=== PATIENT | female | born 1995 | race American Indian/Alaskan Native ===

== ENCOUNTER 2019-07-07 09:51 | Emergency (ER) | payer SELFPAY ==
[2019-07-10 07:38] VITALS: BP 110/66
== END 2019-07-10 13:46 | disposition home or self-care (01) ==
LOC: EEVIPCON 09:51 → ED 09:51
DX: F31.9 Bipolar disorder, unspecified (principal); R45.851 Suicidal ideations; F25.9 Schizoaffective disorder, unspecified
CPT/HCPCS: 36415; 80048; 80307; 80320; 81001; 81025; 85025; G0480

== ENCOUNTER 2019-11-23 19:59 | Emergency (ER) | payer SELFPAY ==
[2019-11-23 20:46] LABS: Basophils % (Auto) 0.7 % (0.0-1.8); Eosinophils % (Auto) 0.6 % (0.0-4.3); Hemoglobin 12.1 gm/dl (10.1-14.3); Lymphocytes % (Auto) 46.7 % (13.4-35.0); Mean Corpuscular HGB Conc 34 % (30-34); Mean Corpuscular Volume 93 fl (79-97); Monocytes # (Auto) 0.5 K/mm3 (0.0-0.8); Monocytes % (Auto) 10.8 % (0.0-7.3); Platelet Count 281 K/mm3 (140-440); Red Blood Count 3.86 M/mm3 (3.65-5.03); Red Cell Distribution Width 13.2 % (13.2-15.2)
[2019-11-23 20:54] LABS: Bilirubin,Urine NEG (Negative); Blood,Urine NEG (Negative); Color,Urine Yellow (Yellow); Mucus,Urine FEW /HPF; Protein,Urine <15 mg/dL mg/dL (Negative)
[2019-11-23 20:59] LABS: Amphetamine Screen,Urine PRESUMPTIVE NEGATIVE; Benzodiazepines Screen,Urine PRESUMPTIVE NEGATIVE; Cannabinoid Screen,Urine PRESUMPTIVE NEGATIVE; Cocaine Screen,Urine PRESUMPTIVE NEGATIVE; Methadone Screen,Urine PRESUMPTIVE NEGATIVE; Opiate Screen,Urine PRESUMPTIVE NEGATIVE
--- NOTE | 2019-11-23 21:00 | Emergency Department Report ---
<NANCY MERCEDES III Eusebio - Last Filed: 11/23/19 21:16> ED Psych HPI - General Chief Complaint: Psych Stated Complaint: MH EVAL/SUICIDAL Time Seen by Provider: 11/23/19 20:48 Source: family Mode of arrival: Ambulatory Limitations: No Limitations - History of Present Illness Initial Comments: Patient is a 24-year-old female that presents emergency room with complaints of suicidal ideations with a plan, patient states that she had a control placed in her arm 2 years ago but is actually a tracking device that her parents place. Patient states that she is a government spying and the [employer] is trying to control her with satellite waves. Patient states that she is having visual hallucinations. Patient denies audio hallucinations. Patient states that she was violent towards her family because they are trying to control her. Patient states that she is worried that people are out to get her. Patient states her plan would be to overdose on pills. MD Complaint: suicidal ideation, feels depressed, other - Related Data Home Medications Medication Instructions Recorded Confirmed Last Taken diphenhydrAMINE [Benadryl CAP] 25 mg PO Q6HR PRN 07/07/19 11/23/19 Unknown Previous Rx's Medication Instructions Recorded Last Taken Type Escitalopram [Lexapro] 5 mg PO DAILY #30 tablet 07/10/19 Unknown Rx risperiDONE [RisperDAL] 4 mg PO DAILY #30 07/10/19 Unknown Rx traZODone [Desyrel] 50 mg PO QHS #30 tablet 07/10/19 Unknown Rx Sulfamethoxazole/Trimethoprim 1 each PO BID 10 Days #20 tablet 11/23/19 Unknown Rx [Bactrim DS TAB] Escitalopram [Lexapro] 10 mg PO DAILY #30 tablet 11/27/19 Unknown Rx risperiDONE [RisperDAL] 3 mg PO BID #60 tablet 11/27/19 Unknown Rx traZODone [Desyrel] 50 mg PO QHS #30 tab 11/27/19 Unknown Rx Allergies Allergy/AdvReac Type Severity Reaction Status Date / Time No Known Allergies Allergy Unverified 07/07/19 09:56 ED Review of Systems Constitutional: denies: chills, fever Eyes: denies: eye pain, eye discharge, vision change ENT: denies: ear pain, throat pain Respiratory: denies: cough, shortness of breath, wheezing Cardiovascular: denies: chest pain, palpitations Endocrine: no symptoms reported Gastrointestinal: denies: abdominal pain, nausea, diarrhea Genitourinary: denies: urgency, dysuria, discharge Musculoskeletal: denies: back pain, joint swelling, arthralgia Skin: denies: rash, lesions Neurological: denies: headache, weakness, paresthesias Psychiatric: depression, visual hallucinations, suicidal thoughts. denies: anxiety, auditory hallucinations, homicidal thoughts Hematological/Lymphatic: denies: easy bleeding, easy bruising ED Past Medical Hx - Past Medical History Previous Medical History?: Yes Hx Psychiatric Treatment: Yes (BIPOLAR/ SCHIZO EFFECTIVE DISORDER) - Surgical History Past Surgical History?: Yes Additional Surgical History: STOMACH SURGERY BABY - Family History Family history: no significant - Social History Smoking Status: Never Smoker Substance Use Type: Alcohol - Medications Home Medications: Home Medications Medication Instructions Recorded Confirmed Last Taken Type diphenhydrAMINE [Benadryl CAP] 25 mg PO Q6HR PRN 07/07/19 11/23/19 Unknown History Escitalopram [Lexapro] 5 mg PO DAILY #30 tablet 07/10/19 11/23/19 Unknown Rx risperiDONE [RisperDAL] 4 mg PO DAILY #30 07/10/19 11/23/19 Unknown Rx traZODone [Desyrel] 50 mg PO QHS #30 tablet 07/10/19 11/23/19 Unknown Rx Sulfamethoxazole/Trimethoprim 1 each PO BID 10 Days #20 tablet 11/23/19 Unknown Rx [Bactrim DS TAB] Escitalopram [Lexapro] 10 mg PO DAILY #30 tablet 11/27/19 Unknown Rx risperiDONE [RisperDAL] 3 mg PO BID #60 tablet 11/27/19 Unknown Rx traZODone [Desyrel] 50 mg PO QHS #30 tab 11/27/19 Unknown Rx ED Physical Exam - General Limitations: No Limitations General appearance: alert, in no apparent distress - Head Head exam: Present: atraumatic, normocephalic - Eye Eye exam: Present: normal appearance - ENT ENT exam: Present: mucous membranes moist - Neck Neck exam: Present: normal inspection - Respiratory Respiratory exam: Present: normal lung sounds bilaterally. Absent: respiratory distress - Cardiovascular Cardiovascular Exam: Present: regular rate, normal rhythm. Absent: systolic murmur, diastolic murmur, rubs, gallop - GI/Abdominal GI/Abdominal exam: Present: soft, normal bowel sounds - Extremities Exam Extremities exam: Present: normal inspection - Back Exam Back exam: Present: normal inspection - Neurological Exam Neurological exam: Present: alert, oriented X3 - Psychiatric Psychiatric exam: Present: depressed, flat affect, suicidal ideation - Expanded Psychiatric Exam Expanded Focused psych exam: Present: pressured speech, delusional, paranoid, flight of ideas, loose associations - Skin Skin exam: Present: warm, dry, intact, normal color. Absent: rash ED Course - Reevaluation(s) Reevaluation #1: Initial evaluation done. Patient placed on a 1013 due to her symptoms and complaints. Patient is having a suicidal ideation with a plan, delusions, visual hallucination, paranoia, acute psychosis. Patient will also be placed on a ER hold. 11/23/19 21:14 Reevaluation #2: I discussed all results and clinical findings with patient. I discussed plan of care with patient. Patient agrees with plan of care. Patient is medically cleared. Patient will require a final disposition and psychiatric disposition to come from our mental health and psychiatric team. Patient will remain on a 1013 and an ER hold. 11/23/19 21:30 ED Medical Decision Making - Lab Data Result diagrams: 11/23/19 20:32 11/23/19 20:32 - Medical Decision Making Patient is a 24-year-old female that presents emergency room with complaints of multiple psychiatric issues. Patient found to have suicidal ideation with a plan to overdose on pills. Acute psychosis to include paranoia and delusions and hallucinations. Patient has delusions that the patient is a government spy and that the government is trying to control her. Patient also believes that her control device in her left upper extremity is a tracking device. Patient was placed on a 1013 in ER hold immediately upon initial evaluation. Patient is medically cleared and patient's final disposition will come from our mental health team and psychiatry team. Patient's labs were done essentially unremarkable except for a UTI. Patient given a prescription for a antibiotic. Patient is stable from a medical standpoint. - Differential Diagnosis Suicidal ideation, acute psychosis, delusions, paranoia, ED Disposition Clinical Impression: Schizoaffective disorder Disposition: DC-01 TO HOME OR SELFCARE Is pt being admited?: No Does the pt Need Aspirin: No Condition: Stable Instructions: Medical Clearance for Psychiatric Care (ED) Prescriptions: traZODone [Desyrel] 50 mg PO QHS #30 tab Sulfamethoxazole/Trimethoprim [Bactrim DS TAB] 1 each PO BID 10 Days #20 tablet Escitalopram [Lexapro] 10 mg PO DAILY #30 tablet risperiDONE [RisperDAL] 3 mg PO BID #60 tablet Referrals: GRAYSON PEREZ MD [Primary Care Provider] - 3-5 Days [facility] [Outside] - 3-5 Days <NATALIO MARKS - Last Filed: 11/27/19 13:02> ED Review of Systems ROS: Stated complaint: MH EVAL/SUICIDAL Other details as noted in HPI ED Course Vital Signs 11/23/19 11/24/19 11/24/19 20:03 01:43 08:00 Temperature 98.8 F 98.7 F 98.5 F Pulse Rate 90 100 H 107 H Respiratory 16 18 18 Rate Blood Pressure 120/80 Blood Pressure 112/53 109/68 [Left] O2 Sat by Pulse 99 97 98 Oximetry 11/24/19 11/24/19 11/24/19 10:15 17:01 20:02 Temperature 99.3 F 98.6 F Pulse Rate 94 H 84 Respiratory 18 18 16 Rate Blood Pressure Blood Pressure 128/74 114/68 [Left] O2 Sat by Pulse 98 96 99 Oximetry 11/25/19 11/25/19 11/25/19 02:19 09:33 14:18 Temperature 98.1 F 98.4 F 98.2 F Pulse Rate 78 72 101 H Respiratory 16 17 16 Rate Blood Pressure Blood Pressure 103/61 117/81 116/64 [Left] O2 Sat by Pulse 100 98 99 Oximetry 11/25/19 11/25/19 11/25/19 20:00 20:20 21:00 Temperature 98.8 F Pulse Rate 119 H 95 H Respiratory 18 18 Rate Blood Pressure Blood Pressure 127/60 [Left] O2 Sat by Pulse 98 98 Oximetry 11/26/19 11/26/19 11/26/19 02:08 20:30 21:14 Temperature 98.0 F 98.0 F Pulse Rate 108 H 101 H Respiratory 18 20 18 Rate Blood Pressure Blood Pressure 109/64 127/65 [Left] O2 Sat by Pulse 99 98 98 Oximetry 11/27/19 11/27/19 01:25 09:08 Temperature 97.9 F 97.9 F Pulse Rate 90 100 H Respiratory 18 20 Rate Blood Pressure Blood Pressure 122/60 131/75 [Left] O2 Sat by Pulse 100 100 Oximetry ED Medical Decision Making - Lab Data Result diagrams: 11/23/19 20:32 11/23/19 20:32 - Medical Decision Making Pt seen and evaluated by mental health. 1013 rescinded. I spoke w/ pt she is not currently paranoid nor suicidal or homicidal. Pt to f/u w/ outpt services. Critical care attestation.: If time is entered above; I have spent that time in minutes in the direct care of this critically ill patient, excluding procedure time. ED Disposition Is pt being admited?: No Time of Disposition: 13:01
[2019-11-23 21:05] LABS: BUN/Creatinine Ratio 17; Blood Urea Nitrogen 12 mg/dL (7-17); Calcium 9.4 mg/dL (8.4-10.2); Hemolysis Index 13
--- NOTE | 2019-11-25 10:53 | Consultation ---
History of Present Illness - Reason for Consult Consult date: 11/25/19 Reason for consult: paranoia - History of Present Psychiatric Illness Bridgett Carter is a 24y/o female patient who states she was admitted into the hospital for "experiencing psychosis." She is a/o x 3. She makes good eye contact. She smiles inappropriately. The patient says she "believes the [employer]os[employer] n[employer] is spying on me." She then says "they placed a tracking device in my arm." The patient holds her arm out and asks me to feel "the tracking device." She then tells me, "they say it's control. But why haven't it come out?" The patient says "I fight with my brain to believe reality." She denies any drug use stating, "I want to but my mom want let me." She says "I did lean, you know the cough syrup." She says "my mom controls my life. I can't do anything." When asking the patient if she was suicidal, she states, "I was, but I'm not sure right now." She says, "my mom hides all the knives and alcohol. Because I get violent when I get a knife." The patient is smiling. She says she has a history of "schizoaffective disorder and bipolar." The patient says she takes "benadryl, trazodone, lexapro and risperidone." She denies hallucinations of any kind. She describes her mood as "good." She denies any problems with her appetite or sleep. PAST PSYCHIATRIC HISTORY: Diagnoses: schizoaffective Disorder and bipolar Suicide attempts or Self-harm behavior: Denies Prior psychiatric hospitalizations: 3 times Substance Abuse history: Denies Previous psychiatric medications tried: benedryl, trazodone, lexapro, and risperidone Outpatient treatment: Yes PAST MEDICAL HISTORY: None reported Family Psychiatric History: None reported or documented SOCIAL HISTORY Current living status: Mom Highest level of education: Some college Employment Status: Unemployed Marital status: Single Legal history: Denies History of abuse: Denies REVIEW OF SYSTEMS Constitutional: Negative for weight loss ENT: Negative for stridor Respiratory: Negative for cough or hemoptysis All other systems reviewed and are negative MENTAL STATUS EXAMINATION General Appearance: Dressed appropriately Behavior: Calm, cooperative. Good eye contact Mood: "good" Affect: Smiles inappropriately Speech: Normal tone and pace Thought Process: responding to internal stimuli Thought Content: Suicidal Ideation: Yes Homicidal Ideation: Yes Hallucinations: Denies Delusions: Yes Insight and Judgment: Impaired Memory/Cognition: Limited Assessment Schizoaffective Disorder Plan MEDICATIONS: Restarted home medications Risks, benefits and alternatives of medications discussed with the patient, q uestions answered and consent obtained from patient. PSYCHOTHERAPY: Supportive psychotherapy provided MEDICAL: Per primary team DELIRIUM PRECAUTIONS: Please re-orient patient frequently, keep lights on during the day, and minimize benzodiazepines and opiates as these medications could worsen patient's confusion. SHELTER ADVOCATE: Per Medical team. DISPOSITION: The patient meets the requirement for acute inpatient psychiatric hospitalization at this time. She may transfer to an acute psychiatric facility once medically clear. The treatment plan was explained to the patient, including benefits and side effects of medications, she verbalizes understanding and agreement of plan. Will continue to follow until the patient is transferred or his condition improves enough for discharge Thank you for the consult. Please contact with any questions or concerns. Medications and Allergies Allergies Allergy/AdvReac Type Severity Reaction Status Date / Time No Known Allergies Allergy Unverified 07/07/19 09:56 Home Medications Medication Instructions Recorded Confirmed Last Taken Type diphenhydrAMINE [Benadryl CAP] 25 mg PO Q6HR PRN 07/07/19 11/23/19 Unknown History Escitalopram [Lexapro] 5 mg PO DAILY #30 tablet 07/10/19 11/23/19 Unknown Rx risperiDONE [RisperDAL] 4 mg PO DAILY #30 07/10/19 11/23/19 Unknown Rx traZODone [Desyrel] 50 mg PO QHS #30 tablet 07/10/19 11/23/19 Unknown Rx Sulfamethoxazole/Trimethoprim 1 each PO BID 10 Days #20 tablet 11/23/19 Unknown Rx [Bactrim DS TAB] Mental Status Exam - Vital signs Last Vital Signs Temp 98.4 F 11/25/19 09:33 Pulse 72 11/25/19 09:33 Resp 17 11/25/19 09:33 BP 117/81 11/25/19 09:33 Pulse Ox 98 11/25/19 09:33 Results Result Diagrams: 11/23/19 20:32 11/23/19 20:32 All other labs normal.
[2019-11-25] MEDS ORDERED: ZIPRASIDONE MESYLATE 20 MG VIAL IM PRN (10:56)
[2019-11-25] MEDS ORDERED: RISPERIDONE 4 MG PO SCH (11:00)
[2019-11-25] MEDS ORDERED: diphenhydrAMINE 25 MG CAP PO PRN (11:00)
[2019-11-25] MEDS ORDERED: risperiDONE 1 MG TAB PO SCH (11:00)
[2019-11-25] MEDS: ESCITALOPRAM 10 MG TAB PO SCH (12:00)
[2019-11-25] MEDS: risperiDONE 1 MG TAB PO SCH (13:00)
[2019-11-25] MEDS: traZODone 50 MG TAB PO SCH (22:32)
--- NOTE | 2019-11-26 10:08 | Progress Note ---
Subjective - Reason for Consult Consult date: 11/26/19 Reason for consult: paranoia - Chief Complaint Chief complaint: The patient's medical record was reviewed and the patient's progress discussed with the nursing staff. During my interview with the patient this morning, she is asleep. She has the linen over her head. She easily arouses. She makes fair eye contact. Her affect is restricted today. She says she was brought here because "I was feeling suicidal and paranoid." She states, "I'm not that suicidal anymore." The patient says "my mom thinks I'm paranoid because I believe in aliens." She says, "I guess this really is a control device in my arm." She holds her arm up and is staring and rubbing on the site. She then says, "I guess that's what it is." She then stares straight ahead. She says her mood is "okay." She says she slept "good." She denies hallucinations of any kind, although she still appears to be responding to internal stimuli MENTAL STATUS EXAMINATION General Appearance: Dressed appropriately Behavior: Calm, cooperative. Fair eye contact Mood: "okay" Affect: Restricted Speech: Normal tone and pace Thought Process: responding to internal stimuli Thought Content: Suicidal Ideation: Yes Homicidal Ideation: Denies Hallucinations: Denies Delusions: Yes Insight and Judgment: Impaired Memory/Cognition: Limited Assessment Schizoaffective Disorder Plan MEDICATIONS: Increased Lexapro 10mg po daily to decrease underlying depression Increased Risperidone 3mg po BID to decrease psychosis Risks, benefits and alternatives of medications discussed with the patient, questions answered and consent obtained from patient. PSYCHOTHERAPY: Supportive psychotherapy provided MEDICAL: Per primary team DELIRIUM PRECAUTIONS: Please re-orient patient frequently, keep lights on during the day, and minimize benzodiazepines and opiates as these medications could worsen patient's confusion. UNDERWATER TRAPPER: Per Medical team. DISPOSITION: The patient meets the requirement for acute inpatient psychiatric hospitalization at this time. She may transfer to an acute psychiatric facility once medically clear. The treatment plan was explained to the patient, including benefits and side effects of medications, she verbalizes understanding and agreement of plan. Will continue to follow until the patient is transferred or his condition improves enough for discharge Thank you for the consult. Please contact with any questions or concerns. Mental Status Exam - Vital signs Last Vital Signs Temp 98.0 F 05/10/20 02:08 Pulse 108 H 11/26/19 02:08 Resp 18 11/26/19 02:08 BP 109/64 11/26/19 02:08 Pulse Ox 99 11/26/19 02:08
[2019-11-26] MEDS: ESCITALOPRAM 10 MG TAB PO SCH ×2 (10:11→13:12)
[2019-11-26] MEDS: risperiDONE 1 MG TAB PO SCH (10:11)
[2019-11-26] MEDS ORDERED: risperiDONE 1 MG TAB PO SCH (22:00)
[2019-11-26] MEDS: traZODone 50 MG TAB PO SCH (23:16)
[2019-11-26] MEDS: risperiDONE 3 MG TAB PO SCH (23:16)
[2019-11-27] MEDS: ESCITALOPRAM 10 MG TAB PO SCH (10:48)
[2019-11-27] MEDS: risperiDONE 3 MG TAB PO SCH (10:48)
--- NOTE | 2019-11-27 11:41 | Progress Note ---
Subjective - Reason for Consult Consult date: 11/27/19 Reason for consult: paranoia - Chief Complaint Chief complaint: The patient's medical record was reviewed and the patient's progress discussed with the nursing staff. The nurse note states the patient is resting quietly on recliner, resp even and non labored, no acute distress noted, no s/s of self harm, ambulates as needed to restroom, able to make needs known The patient is calm and cooperative, pleasant mood noted. During my interview with the patient this morning, she is awake. She is dressed appropriately. She is calm and cooperative. She is pleasant. She makes good eye contact. She says she slept "good." The patient states, "I think my medications wasn't right. I feel so much better now." She then states, "my mind has been clear and I don't feel paranoid." She says she "slept good." The patient denies SI/HI, any fear of endangerment, and hallucinations of any kind. She asks me if I would call her mom and speak with her. I called the patient's mother, Lyle Carter, via my cell phone at [phone]. Mrs. Carter states to me that she had spoken with the patient and she senses that she is improved significantly. She says she spoke with the patient in debt and she would like to take Bridgett home. Mrs. Carter says she was concerned with COVID-19 exposure at hospitals. She states that she did not believe Bridgett was on the right dose of medicine. Mrs. Carter denies any fear or feelings of endangerment of the patient being discharged home. The safety plan was explained to her. She and Bridgett both verbalizes understanding and agreement. MENTAL STATUS EXAMINATION General Appearance: Dressed appropriately Behavior: Calm, cooperative. Pleasant. Good eye contact Mood: "so mugh better now" Affect: Restricted Speech: Normal tone and pace Thought Process: goal oriented Thought Content: Suicidal Ideation: Denies Homicidal Ideation: Denies Hallucinations: Denies Delusions: None elicited Insight and Judgment: Limited Memory/Cognition: Limited Assessment Schizoaffective Disorder Plan D/C 1013 MEDICATIONS: Lexapro 10mg po daily to decrease underlying depression Risperidone 3mg po BID to decrease psychosis Trazodone 50mg po qhs Okay to continue home diphehydramine as needed (no scripts given) Risks, benefits and alternatives of medications discussed with the patient, questions answered and consent obtained from patient. PSYCHOTHERAPY: Supportive psychotherapy provided MEDICAL: Per primary team DELIRIUM PRECAUTIONS: Please re-orient patient frequently, keep lights on during the day, and minimize benzodiazepines and opiates as these medications could worsen patient's confusion. CASH CONTROLLER: Per Medical team. DISPOSITION: The patient does not meet the requirement for acute inpatient psychiatric hospitalization at this time. She may discharge home once medically clear. She and her mother understand that if SI/HI or feelings of endangerment are to arise, they are to seek immediate assistance including but not limited to the crisis hotline, 911 or/and ER. The commercial account manager is to further discuss safety plan with the patient, and resources for cognitive behavioral therapy. The patient is to follow up with outpatient psychiatry or primary in 7 to 14 days upon discharge. The treatment plan was explained to the patient and her mother, Lyle Carter, including benefits and side effects of medications, they both verbalize understanding and agreement of plan. Will sign off. Thank you for the consult. Please contact with any questions or concerns. Mental Status Exam - Vital signs Last Vital Signs Temp 97.9 F 11/27/19 09:08 Pulse 100 H 11/27/19 09:08 Resp 20 11/27/19 09:08 BP 131/75 11/27/19 09:08 Pulse Ox 100 11/27/19 09:08
[2019-11-28 11:37] VITALS: BP 131/75
== END 2019-11-27 13:21 | disposition home or self-care (01) ==
LOC: EEVIPCON 19:59 → ED 19:59
DX: F25.9 Schizoaffective disorder, unspecified (principal); Z98.890 Other specified postprocedural states; Z79.899 Other long term (current) drug therapy
CPT/HCPCS: 36415; 80048; 80307; 80320; 81001; 84703; 85025; 87086; G0480

== ENCOUNTER 2022-04-09 17:00 | Emergency (ER) | payer SELFPAY ==
[2022-04-09 18:35] LABS: Color,Urine Straw (Yellow); RBC,Urine < 1.0 /HPF (0.0-6.0); WBC,Urine < 1.0 /HPF (0.0-6.0)
[2022-04-09 18:45] LABS: Alanine Aminotransferase 19 units/L (7-56); Albumin 4.3 g/dL (3.9-5); BUN/Creatinine Ratio 9; Blood Urea Nitrogen 9 mg/dL (7-17); Calcium 10.1 mg/dL (8.4-10.2); Hemolysis Index 14
[2022-04-09 19:16] LABS: Basophils % (Auto) 0.6 % (0.0-1.8); Eosinophils % (Auto) 0.1 % (0.0-4.3); Hematocrit 38.3 % (30.3-42.9); Hemoglobin 12.7 gm/dl (10.1-14.3); Lymphocytes # (Auto) 1.8 K/mm3 (1.2-5.4); Lymphocytes % (Auto) 28.4 % (13.4-35.0); Mean Corpuscular HGB Conc 33 % (30-34); Mean Corpuscular Volume 98 fl (79-97); Monocytes # (Auto) 0.6 K/mm3 (0.0-0.8); Monocytes % (Auto) 10.2 % (0.0-7.3); Platelet Count 177 K/mm3 (140-440); Red Blood Count 3.93 M/mm3 (3.65-5.03); Red Cell Distribution Width 12.8 % (13.2-15.2)
[2022-04-10] MEDS ORDERED: INSULIN REGULAR, HUMAN 100 UNITS/1 ML SUB-Q ONE (05:58)
[2022-04-10] MEDS ORDERED: INSULIN REGULAR, HUMAN 100 UNITS/1 ML IV ONE (05:59)
--- NOTE | 2022-04-10 08:27 | Emergency Department Report ---
ED General Adult HPI - General Chief complaint: Hyperglycemia Stated complaint: BLOOD SUGAR HIGH Time Seen by Provider: 04/10/22 06:37 Source: patient, family Mode of arrival: Ambulatory Limitations: No Limitations - History of Present Illness Initial comments: 27-year-old -[place] female who recently was diagnosed with noninsulin- dependent diabetes, however reports was not aware that she was post to take medication and hence did not get her metformin prescription. Admits to having urinary frequency, polydipsia and polyuria. denies having any fever chills or chest pain. -: Gradual Location: mouth (Dry mouth) Severity scale (0 -10): 2 Consistency: intermittent Improves with: none Associated Symptoms: denies other symptoms. denies: confusion, chest pain, cough, diaphoresis, loss of appetite Treatments Prior to Arrival: none - Related Data Home Medications Medication Instructions Recorded Confirmed Last Taken diphenhydrAMINE [Benadryl CAP] 25 mg PO Q6HR PRN 07/07/19 11/23/19 Unknown Previous Rx's Medication Instructions Recorded Last Taken Type Escitalopram [Lexapro] 5 mg PO DAILY #30 tablet 07/10/19 Unknown Rx risperiDONE [RisperDAL] 4 mg PO DAILY #30 07/10/19 Unknown Rx traZODone [Desyrel] 50 mg PO QHS #30 tablet 07/10/19 Unknown Rx Sulfamethoxazole/Trimethoprim 1 each PO BID 10 Days #20 tablet 11/23/19 Unknown Rx [Bactrim DS TAB] Escitalopram [Lexapro] 10 mg PO DAILY #30 tablet 11/27/19 Unknown Rx risperiDONE [RisperDAL] 3 mg PO BID #60 tablet 11/27/19 Unknown Rx traZODone [Desyrel] 50 mg PO QHS #30 tab 11/27/19 Unknown Rx metFORMIN [Glucophage] 500 mg PO BID #60 04/10/22 Unknown Rx Allergies Allergy/AdvReac Type Severity Reaction Status Date / Time No Known Allergies Allergy Unverified 07/07/19 09:56 ED Review of Systems ROS: Stated complaint: BLOOD SUGAR HIGH Other details as noted in HPI Constitutional: see HPI. denies: chills, fever Eyes: denies: eye pain, eye discharge, vision change ENT: denies: ear pain, throat pain Respiratory: denies: cough, shortness of breath, wheezing Cardiovascular: as per HPI Endocrine: increased thirst, increased urine Gastrointestinal: nausea Genitourinary: denies: urgency, dysuria, discharge Musculoskeletal: as per HPI Skin: denies: rash, lesions Neurological: denies: headache, weakness, paresthesias ED Past Medical Hx - Past Medical History Previous Medical History?: Yes Hx Diabetes: Yes Hx Psychiatric Treatment: Yes (BIPOLAR/ SCHIZO EFFECTIVE DISORDER) Hx Asthma: Yes - Surgical History Additional Surgical History: STOMACH SURGERY BABY - Social History Smoking Status: Never Smoker Substance Use Type: Alcohol - Medications Home Medications: Home Medications Medication Instructions Recorded Confirmed Last Taken Type diphenhydrAMINE [Benadryl CAP] 25 mg PO Q6HR PRN 07/07/19 11/23/19 Unknown History Escitalopram [Lexapro] 5 mg PO DAILY #30 tablet 07/10/19 11/23/19 Unknown Rx risperiDONE [RisperDAL] 4 mg PO DAILY #30 07/10/19 11/23/19 Unknown Rx traZODone [Desyrel] 50 mg PO QHS #30 tablet 07/10/19 11/23/19 Unknown Rx Sulfamethoxazole/Trimethoprim 1 each PO BID 10 Days #20 tablet 11/23/19 Unknown Rx [Bactrim DS TAB] Escitalopram [Lexapro] 10 mg PO DAILY #30 tablet 11/27/19 Unknown Rx risperiDONE [RisperDAL] 3 mg PO BID #60 tablet 11/27/19 Unknown Rx traZODone [Desyrel] 50 mg PO QHS #30 tab 11/27/19 Unknown Rx metFORMIN [Glucophage] 500 mg PO BID #60 04/10/22 Unknown Rx ED Physical Exam - General General appearance: alert, in no apparent distress - Head Head exam: Present: atraumatic, normocephalic - Eye Eye exam: Present: normal appearance, PERRL. Absent: scleral icterus Pupils: Present: normal accommodation - ENT ENT exam: Present: mucous membranes moist, normal external ear exam - Neck Neck exam: Present: normal inspection, full ROM. Absent: tenderness - Respiratory Respiratory exam: Present: normal lung sounds bilaterally. Absent: respiratory distress - Cardiovascular Cardiovascular Exam: Present: regular rate, normal rhythm, normal heart sounds - GI/Abdominal GI/Abdominal exam: Present: soft, normal bowel sounds. Absent: distended, tenderness - Extremities Exam Extremities exam: Present: normal inspection, full ROM - Back Exam Back exam: Present: normal inspection, full ROM, tenderness - Neurological Exam Neurological exam: Present: alert, oriented X3, CN II-XII intact, normal gait, reflexes normal. Absent: motor sensory deficit - Psychiatric Psychiatric exam: Present: normal affect, normal mood - Skin Skin exam: Present: warm, dry ED Course Vital Signs 04/09/22 17:46 Temperature 98.6 F Pulse Rate 102 H Respiratory 18 Rate Blood Pressure 128/75 O2 Sat by Pulse 97 Oximetry ED Medical Decision Making - Lab Data Result diagrams: 04/09/22 18:07 04/09/22 18:07 Critical care attestation.: If time is entered above; I have spent that time in minutes in the direct care of this critically ill patient, excluding procedure time. ED Disposition Clinical Impression: Hyperglycemia Disposition: 01 HOME / SELF CARE / HOMELESS Is pt being admited?: No Does the pt Need Aspirin: No Condition: Stable Instructions: Preventing Type 2 Diabetes Mellitus, Hyperglycemia, Hyperglyce patricia, [id number] Prescriptions: metFORMIN [Glucophage] 500 mg PO BID #60
[2022-04-10 08:47] VITALS: BP 130/78
== END 2022-04-10 08:50 | disposition home or self-care (01) ==
LOC: ED 17:00
DX: E11.65 Type 2 diabetes mellitus with hyperglycemia (principal); J45.909 Unspecified asthma, uncomplicated; F31.9 Bipolar disorder, unspecified; Z79.899 Other long term (current) drug therapy
CPT/HCPCS: 36415; 80053; 81001; 82805; 82962; 85025; 96372; 96374; 99283; Q9967; J1815